=== PATIENT | male | born 1945 | race Caucasian/White ===

== ENCOUNTER 2016-05-27 22:36 | Emergency (ER) | payer OTHER, MEDICARE ==
[~2016-05-27] VITALS: Ht 172.7 cm; Wt 82.6 kg
--- NOTE | 2016-05-27 23:23 | ED GENERAL ADULT ---
History of Present Illness General Chief Complaint: General Adult Stated Complaint: PER SON,"MY FATHER HAS HIGH BLOOD PREASSURE" Source: patient Exam Limitations: poor historian, language barrier Vital Signs & Intake/Output Vital Signs & Intake/Output Vital Signs Date Time Temp Pulse Resp B/P Pulse O2 O2 Flow FiO2 Ox Delivery Rate 05/28 0126 148/82 05/28 0043 177/90 05/28 0029 Room Air 05/28 0016 82 18 177/90 97 Room Air 05/27 2253 97.6 79 18 184/98 98 Room Air ED Intake and Output 05/28 0000 05/27 1200 Intake Total Output Total Balance Patient 182 lb Weight Allergies Coded Allergies: No Known Allergies (05/27/16) Reconcile Medications Atenolol 50 MG TABLET 1 TAB PO DAILY HTN (Reported) Enalapril Maleate 20 MG TABLET 1 TAB PO DAILY HTN (Reported) Gemfibrozil 600 MG TABLET 1 TAB PO BID HIGH CHOLESTEROL (Reported) Hydrochlorothiazide 25 MG TABLET 1 TAB PO DAILY HTN (Reported) Metformin HCl 1,000 MG TABLET 1 TAB PO BID DM (Reported) Triage Note: RECEIVED 70 YO MALE C/O ELEVATED BLOOD PRESSURE. AT HOME WITH AUTO CUFF, B/P WAS 190/97. IN TRIAGE 184/98. PT REPORTS MILD H/A. PT TAKES ENALAPRIL AND HCTZ AND LOPID, COMPLIANT WITH MEDS. Triage Nurses Notes Reviewed? yes Onset: Abrupt Duration: hour(s): Timing: recent history HPI: 05/27/16 This is a 70-year-old male who presents to the emergency department for elevated blood pressure. The patient states that he was in his usual state of health until earlier this evening when he checked his blood pressure and it was significantly elevated. He denies any chest pain or shortness of breath but admits to headache. This is since resolved. He was concerned as his is currently a patient in the ED. The onset of the symptoms were abrupt, the duration was just this evening, the severity was significant as his symptoms required him to come to the emergency department for care. BP was 190/97 at home today. Past History Travel History Traveled to [place] past 21 day No Medical History Any Pertinent Medical History? see below for history Neurological: NONE EENT: NONE Cardiovascular: hypertension, hyperlipidemia Respiratory: NONE Gastrointestinal: NONE Hepatic: NONE Renal: NONE Musculoskeletal: NONE Psychiatric: NONE Endocrine: diabetes Blood Disorders: NONE Cancer(s): NONE Surgical History Surgical History: non-contributory Psychosocial History What is your primary language Urdu Tobacco Use: Never used Family History Hx Contributory? No Review of Systems Review of Systems Constitutional: Denies: fever. EENTM: Denies: visual changes. Respiratory: Denies: short of breath. Cardiovascular: Denies: chest pain. GI: Denies: abdominal pain. Genitourinary: Reports: no symptoms. Musculoskeletal: Reports: no symptoms. Skin: Reports: no symptoms. Neurological/Psychological: Reports: no symptoms. Hematologic/Endocrine: Reports: no symptoms. Immunologic/Allergic: Reports: no symptoms. Physical Exam Physical Exam General Appearance: alert, awake, anxious, mild distress Head: atraumatic, normal appearance Eyes: Bilateral: normal appearance, PERRL, EOMI. Ears, Nose, Throat: normal pharynx, normal ENT inspection Neck: normal inspection, supple Respiratory: normal breath sounds, chest non-tender, no respiratory distress Cardiovascular: regular rate/rhythm Peripheral Pulses: 4+ radial (R), 4+ radial (L) Gastrointestinal: soft, non-tender Back: normal range of motion Extremities: normal range of motion Neurologic/Psych: no motor/sensory deficits, awake, alert, oriented x 3 Skin: intact, normal color, warm/dry Core Measures ACS in differential dx? No CVA/TIA Diagnosis: No Severe Sepsis Present: No Septic Shock Present: No Progress Differential Diagnoses I considered the following diagnoses in my evaluation of the patient: [Aortic dissection, CVA, acute coronary syndrome, asymptomatic hypertension, stress reaction,] Plan of Care: Orders Procedure Date/time Status URINALYSIS 05/27 2334 Complete TROPONIN LEVEL 05/27 2302 Complete COMPREHENSIVE METABOLIC PANEL 05/27 2302 Complete CBC WITHOUT DIFFERENTIAL 05/27 2302 Complete EKG 05/27 2302 Active Laboratory Tests 05/27/16 233: Anion Gap 15, Estimated GFR > 60, BUN/Creatinine Ratio 21.8, Glucose 242 H, Calcium 10.3 H, Total Bilirubin 0.3, AST 18, ALT 24, Alkaline Phosphatase 48, Troponin I < 0.01, Total Protein 7.0, Albumin 4.4, Globulin 2.6, Albumin/ Globulin Ratio 1.7, CBC w Diff NO MAN DIFF REQ, RBC 4.12 L, MCV 88.4, MCH 29.8, RDW 13.6, MPV 8.2, Gran % 38.5 L, Lymphocytes % 48.9, Monocytes % 10.0 H, Eosinophils % 1.9, Basophils % 0.7, Absolute Granulocytes 2.3, Absolute Lymphocytes 2.9, Absolute Monocytes 0.6, Absolute Eosinophils 0.1, Absolute Basophils 0, PUBS MCHC 33.7, Urine Color STRAW, Urine Clarity CLEAR, Urine pH 6.0, Ur Specific [place] 1.020, Urine Protein NEG, Urine Ketones NEG, Urine Nitrite NEG, Urine Bilirubin NEG, Urine Urobilinogen 0.2, Ur Leukocyte Esterase NEG, Ur Microscopic EXAM NOT REQUIRED, Urine Hemoglobin NEG, Urine Glucose >= 1000 H Initial ED EKG: NSR Prior EKG: unchanged Departure Departure Disposition: HOME OR SELF CARE Condition: Stable Clinical Impression Primary Impression: Hypertension Referrals: FRANKLYN KUMAR MD (PCP/Family) Departure Forms: Customer Survey General Discharge Information Comments Chest x-ray was negative PATIENT: BEVERLY OQUENDO PRESENT AGE: 70 PATIENT ACCOUNT NO: [id number] : 46 LOCATION: [facility] ORDERING PHYSICIAN: GAEL EDWARD MD SERVICE DATE: 05/27/16 EXAM TYPE: RAD - XRY-PORTABLE CHEST XRAY EXAMINATION: XR PORTABLE CHEST CLINICAL INFORMATION: Chest pain COMPARISON: None TECHNIQUE: Portable AP view of the chest was obtained. FINDINGS: The lungs are clear with no focal consolidation. No evidence of pneumothorax, pulmonary edema, or pleural effusions. Cardiac size is at the upper limits of normal. No acute osseous findings. IMPRESSION: No acute cardiopulmonary findings. DICTATED BY: LYNN LEAL MD DATE/TIME DICTATED:05/28/161 DECORATING EQUIPMENT SETTER:TATA DATE/TIME TRANSCRIBED:05/28/161 CONFIDENTIAL, DO NOT COPY WITHOUT APPROPRIATE AUTHORIZATION. <Electronically signed in Other Vendor System> SIGNED BY: LYNN LEAL MD 05/28/16 0007 05/28/16 1:34 am The patient remains asymptomatic,labs and EKG unremarkable. Repeat blood pressure shown below B/P: 148/82 BP Source+ Manually BP Position+ Lying Mean Arterial Pressure 104 He was discharged. He will follow-up with his doctor in the next 72 hours and have his blood pressure rechecked. He was told to return to the emergency department should he get chest pain shortness of breath headache or feel worse in any way. Critical Care Note Critical Care Note Critical Care Time: non-applicable
[2016-05-27 23:49] LABS: ABSOLUTE BASOPHIL COUNT 0 /CUMM (0.0-0.2); ABSOLUTE EOSINOPHIL COUNT 0.1 /CUMM (0.0-0.7); ABSOLUTE GRANULOCYTE CT 2.3 /CUMM (1.4-6.5); ABSOLUTE LYMPH COUNT 2.9 /CUMM (1.2-3.4); ABSOLUTE MONOCYTE COUNT 0.6 /CUMM (0.10-0.60); BASOPHIL % 0.7 % (0.0-2.0); EOSINOPHIL % 1.9 % (0-5); GRANULOCYTE % 38.5 % (42.2-75.2); HEMATOCRIT 36.4 % (42-52); MEAN CORPUSCULAR HGB 29.8 PG (27.0-31.0); MEAN CORPUSCULAR HGB CONC 33.7 G/DL (33.0-37.0); MEAN CORPUSCULAR VOLUME 88.4 FL (80.0-94.0); MEAN PLATELET VOLUME 8.2 FL (7.4-10.4); PLATELET COUNT 262 /CUMM (130-400); RBC DISTRIBUTION WIDTH 13.6 % (11.5-14.5); RED BLOOD CELL CT 4.12 /CUMM (4.70-6.10); WHITE BLOOD CELL COUNT 5.9 /CUMM (4.8-10.8)
--- NOTE | 2016-05-28 00:07 | RADIOLOGY REPORT ---
EXAMINATION: XR PORTABLE CHEST CLINICAL INFORMATION: Chest pain COMPARISON: None TECHNIQUE: Portable AP view of the chest was obtained. FINDINGS: The lungs are clear with no focal consolidation. No evidence of pneumothorax, pulmonary edema, or pleural effusions. Cardiac size is at the upper limits of normal. No acute osseous findings. IMPRESSION: No acute cardiopulmonary findings.
[2016-05-28] MEDS ORDERED: METFORMIN HCL1000 M1 PO (00:32)
[2016-05-28] MEDS ORDERED: GEMFIBROZIL600 M1 PO (00:32)
[2016-05-28] MEDS ORDERED: ENALAPRIL MALEA20 M1 PO (00:32)
[2016-05-28] MEDS ORDERED: ATENOLOL50 M1 PO (00:33)
[2016-05-28] MEDS ORDERED: HYDROCHLOROTHIA25 M1 PO (00:33)
[2016-05-28 01:26] VITALS: BP 148/82
== END 2016-05-28 01:37 ==
LOC: ERH 22:36
PROVIDERS: Pediatrics
DX: I10 Essential (primary) hypertension (principal); R51 Headache
CPT/HCPCS: 81003; 93005; 93010